=== PATIENT | male | born 1995 | race Caucasian/White ===

== ENCOUNTER 2022-05-05 13:53 | Emergency (ER) | payer SELFPAY ==
[2022-05-05] MEDS: ONDANSETRON HCL ODT 4 MG TABLET PO (14:04)
[2022-05-05 14:06] VITALS: BP 171/99; PULSE 79; RESP 18; TEMP 36.4; O2SAT 99
[2022-05-05 14:50] VITALS: BP 140/90
[2022-05-05] MEDS: PROMETHAZINE HCL 25 MG/ML AMPUL IM (15:06)
[2022-05-05] MEDS: FAMOTIDINE 20 MG TABLET PO (15:32)
--- NOTE | 2022-05-05 16:05 | ED.GENADULT ---
HPI - General Adult General Chief complaint: Nausea/Vomiting/Diarrhea Stated complaint: Abdominal Pain Source: patient Mode of arrival: ambulatory Limitations: no limitations History of Present Illness HPI narrative: Patient presents for evaluation of nausea, vomiting, diarrhea since 0630 this morning. He thinks that he has food poisoning from intake of food from [employer] last night. He reports hot flashes, chills, body aches, muscle cramping. No recent sick contacts. He does smoke marijuana daily with last use yesterday. He denies significant abdominal pain or other symptoms. Last bowel movement just [employer], which was diarrhea. No blood or mucous in the stool. Related Data Allergies Allergy/AdvReac Type Severity Reaction Status Date / Time No Known Allergies Allergy Verified 05/05/22 14:02 Review of Systems Review of Systems: CONSTITUTIONAL: Reports hot flashes and chills. EYES: Denies visual changes, redness, or discharge. ENT: Denies rhinorrhea, congestion, sore throat, or otalgia. CARDIOVASCULAR: Denies chest pain, palpitations, or edema. RESPIRATORY: Denies cough or dyspnea. GASTROINTESTINAL: Reports nausea, vomiting, diarrhea. Denies abdominal pain GENITOURINARY: Denies dysuria or hematuria. SKIN: Denies rash or itching. MUSCULOSKELETAL: Reports body aches and muscle spasms NEUROLOGIC: Denies headache, numbness, dizziness, or weakness. PSYCHIATRIC: Denies anxiety or depression. [facility] Past Medical History Medical History (Updated 05/05/22 @ 16:28 by Kvng Chawla, [facility], ) No pertinent past medical history Surgical History Surgical History No pertinent past surgical history Family History Family History Mother Family history non-contributory Social History Social History (Updated 05/05/22 @ 16:08 by Kvng Chawla, [facility], ) Substance use: current Substance use type: marijuana Gender identity (if verbalized by the patient): Male Spiritual care concerns: No Exam Narrative: GENERAL: Appears acutely ill but nontoxic. Generalized pallor. HEAD: Normocephalic, atraumatic. EYES: PERRLA and EOMI. ENT: Nares clear, no rhinorrhea or epistaxis. Mucous membranes moist. Oropharynx without tonsillar hypertrophy exudate or other lesions. Bilateral TMs pearly garcía nonbulging NECK: Supple. No adenopathy or masses. No carotid bruits or JVD CHEST: Clear to auscultation. No respiratory distress. No wheezes rales or rhonchi HEART: Regular rate and rhythm. No murmur heard. Normal peripheral pulses. ABDOMEN: Soft, nontender, nondistended, normal active bowel sounds. EXTREMITIES: Normal range of motion. No edema. SKIN: Warm, dry, no rash. NEURO: No focal deficits. Alert and oriented x3. PSYCH: Normal mood and affect. Course Course Emergency Course: This is a 27-year-old male who presented for evaluation nausea, vomiting, diarrhea. Was initially hypertensive but was dry heaving at that time. He was given Zofran, Pepcid, promethazine. His symptoms markedly improved. He was able consumed a bottle of water and a popsicle. He still reported some nausea. He had no abdominal tenderness on exam. I did offer to transfer him to the emergency department for further workup, which she declined. I think this is reasonable. Doubt bowel obstruction as he had a bowel movement just [employer]. He is tolerating oral intake. Will dc with pepcid and zofran. Advised he follow up this coming week. Go to ER for intractable abdominal pain or vomiting. Advised he follow clear liquid diet and advance to bland diet thereafter if tolerated. Pt in agreement with plan of care. Level of Care: Express Care Visit Vital Signs Vital signs: Vital Signs Temperature 36.4 C 05/05/22 14:06 Pulse Rate 79 05/05/22 14:06 Respiratory Rate 18 05/05/22 14:06 Blood Pressure 171/99 H 05/05/22 14:06 Pulse Oxime
== END 2022-05-05 16:39 | disposition home or self-care (01) ==
PROVIDERS: Emergency Provider Nurse Practitioner; PCP Emergency Medicine
DX: R11.2 Nausea with vomiting, unspecified (principal); R19.7 Diarrhea, unspecified; Z20.822 Contact with and (suspected) exposure to COVID-19; F12.90 Cannabis use, unspecified, uncomplicated
CPT/HCPCS: 87426; 87804; 96372; 99213; A9270; C9803; G0463; J2550